=== PATIENT | male | born 1975 | race Caucasian/White ===

== ENCOUNTER 2020-01-07 13:57 | Emergency (ER) | payer MEDICAID ==
[~2020-01-07] VITALS: Ht 177.8 cm; Wt 81.6 kg
[2020-01-07 14:36] VITALS: BP 131/101
[2020-01-07] MEDS ORDERED: LIDOCAINE MPF 1% 10 MG/ML VIAL INJ ONE (14:55)
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
--- NOTE | 2020-01-07 16:00 | NUR ---
ERMD AT BEDSIDE
[2020-01-07 17:15] VITALS: BP 135/86
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
== END 2020-01-07 17:15 | disposition home or self-care (01) ==
LOC: MED 13:57
DX: S01.511A Laceration without foreign body of lip, initial encounter (principal); S01.81XA Laceration without foreign body of other part of head, initial encounter; S01.21XA Laceration without foreign body of nose, initial encounter; M25.562 Pain in left knee; V87.8XXA Person injured in other specified noncollision transport accidents involving motor vehicle (traffic), initial encounter; Y93.55 Activity, bike riding; Y92.480 Sidewalk as the place of occurrence of the external cause; Y99.8 Other external cause status
CPT/HCPCS: 12013; 70450; 70486; 73562; 99285